=== PATIENT | male | born 1995 | race Caucasian/White ===

== ENCOUNTER 2019-04-08 12:38 | Outpatient (CLI) | payer BC ==
--- NOTE | 2019-04-08 15:34 | MRI ---
MRI OF THE RIGHT KNEE WITHOUT CONTRAST: 04/08/19 HISTORY: Tear of lateral meniscus of knee. S83.281A. COMPARISON: None. FINDINGS: MEDIAL MENISCUS: There is a vertical longitudinal tear through the posterior peripheral most fibers posterior horn bod y junction. These extend into the posterior horn. This appears to spare the reattachment. LATERAL MENISCUS: Superior articular surface tear of the posterior horn/body junction extending into the root. This inv olves approximately one third of the meniscal volume. Complete rupture proximal fibers anterior cruciate ligament with some displaced fibers within the ant erior portion intercondylar notch. Posterior cruciate ligament is intact. The medial collateral ligament is not torn. The posterior collateral ligament is not torn. There is h igh grade tear, grade II of the lateral collateral ligament with extensive interstitial fibrillation. The lateral meniscal femoral meniscotibial ligaments appear torn. EXTENSOR MECHANISM: There is some low stripping of the quadriceps tendon plate at the mid portion of the patella with par tially stripped rectus femoris component. The distal patellar tendon is intact. CARTILAGE: Patellofemoral compartment: Intact. Medial compartment: Intact. Lateral compartment: Intact. BONES: High grade contusions of the lateral femoral condyle seen across the physeal scar to the metaphysis. There is also an impaction fracture posterolateral tibial plateau with edema extending to the posteri or medial tibial plateau. SOFT TISSUES: There is a moderate popliteus bursa effusion with cranial and caudal dehiscence. Moderate joint effus ion. IMPRESSION: 1. Full thickness rupture of the proximal fibers of the anterior cruciate ligament with some of the distal insertional fibers displaced anteriorly. 2. There is a 30% volume superior articular surface tear of the posterior horn lateral meniscus extending to the root attachment, a Wrisberg rip type tear. 3. Vertical longitudinal tear through the peripheral most fibers posterior horn/body junction me dial meniscus extending to the posterior horn. 4. High grade tear lateral collateral ligament with extensive interstitial fibrillation. 5. Healing high grade tears of the lateral meniscal, femoral meniscotibial ligaments. 6. High grade bone contusions of the lateral femoral condyle and lateral tibial plateau extendin g to the posterior medial tibial plateau. There is also a contrecoup contusion of the medial femoral condyle. 7. There is a low grade avulsion of the deep fibers rectus femoris tendon insertion of the quadr iceps tendon plate upon the mid portion of the patella with linear interstitial tear extending crania d approximately 2 cm involving only 10% of the biceps tendon volume. 8. Moderate sized popliteus bursa effusion with craniad and caudal dehiscence. POS: [facility]
== END 2019-04-08 12:39 | disposition home or self-care (01) ==
LOC: SCSMRI 12:38
PROVIDERS: ATTEND Orthopaedic Surgery
DX: S83.281A Other tear of lateral meniscus, current injury, right knee, initial encounter (principal); S83.511A Sprain of anterior cruciate ligament of right knee, initial encounter; M23.91 Unspecified internal derangement of right knee; M25.461 Effusion, right knee